=== PATIENT | female | born 1985 | race African-American/Black ===

== ENCOUNTER 2016-09-26 18:04 | Emergency (ER) | payer MEDICAID ==
[~2016-09-26] VITALS: Ht 165.1 cm; Wt 78.5 kg
[2016-09-26 18:29] VITALS: BP 124/82
[2016-09-26] MEDS ORDERED: IBUPROFEN600 MG ORAL (18:44)
[2016-09-26] MEDS ORDERED: ARTIFICIAL TEAR15 ML RIGHT EYE (18:44)
[2016-09-26] MEDS ORDERED: ROBAXIN-750750 MG PO (18:44)
[2016-09-26] MEDS ORDERED: Metoclopramide 10mg/2ml Inj IM ONE (18:45)
[2016-09-26] MEDS ORDERED: Ketorolac 30mg Inj IM ONE (18:45)
[2016-09-26 19:05] VITALS: BP 124/82
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
== END 2016-09-26 19:04 | disposition home or self-care (01) ==
LOC: EMR 18:42
DX: H11.31 Conjunctival hemorrhage, right eye (principal); T16.2XXA Foreign body in left ear, initial encounter; S20.211A Contusion of right front wall of thorax, initial encounter; Y09 Assault by unspecified means
CPT/HCPCS: 69200; 96372; 99284; J1885; J2765; Z7502